=== PATIENT | female | born 2000 | race Caucasian/White ===

== ENCOUNTER 2021-07-21 17:15 | Inpatient (IN) | payer MEDICAID ==
[2021-07-21] MEDS ORDERED: HALOPERIDOL 5 MG TABLET PO PRN (23:15)
[2021-07-22] MEDS ORDERED: QUET25TA PO (00:03)
[2021-07-22] MEDS ORDERED: OLAN5TAB94 PO (00:03)
[2021-07-22] MEDS ORDERED: INFLUENZA VIRUS VACCINE QVS 2021-22 (6MO+)/PF 60 MCG/0.5 ML SYRINGE IM. ONE (01:00)
[2021-07-22 01:01] VITALS: BP 98/65
[2021-07-22 06:27] LABS: EOSINOPHILS % (AUTO) 1.3 % (1.0-6.0); HEMATOCRIT 38.6 % (36-46); HEMOGLOBIN 13.4 g/dL (12.0-16.0); LYMPHOCYTES # (AUTO) 2.4 K/uL (1.0-4.8); LYMPHOCYTES % (AUTO) 46.7 % (22.0-44.0); MEAN CORPUSCULAR HEMOGLOBIN 29.1 pg (26.0-34.0); MEAN CORPUSCULAR HGB CONC 34.6 G/dL (31.0-37.0); MEAN CORPUSCULAR VOLUME 84 fL (80-100); MONOCYTES # (AUTO) 0.4 K/uL (0.1-1.0); MONOCYTES % (AUTO) 7.9 % (2.0-9.0); NEUTROPHILS # (AUTO) 2.3 K/uL (1.8-7.7); NEUTROPHILS % (AUTO) 43.1 % (40.0-70.0); PLATELET COUNT (AUTO) 233 K/uL (150-450); RED CELL DISTRIBUTION WIDTH 14.1 % (11.5-14.5)
[2021-07-22 06:51] LABS: ALANINE AMINOTRANSFERASE 20 U/L (12-78); ALBUMIN 3.7 g/dL (3.4-5.0); ALKALINE PHOSPHATASE 76 U/L (46-116); ANION GAP 6 mmol/L (8-16); ASPARTATE AMINOTRANSFERASE 14 U/L (15-37); BILIRUBIN,TOTAL 0.5 mg/dL (0.1-1.0); CALCIUM, TOTAL 8.8 mg/dL (8.8-10.5); CARBON DIOXIDE 29 mmol/L (22-29); CHLORIDE 105 mmol/L (98-107); CHOL/HDL RATIO 2.3 (3.9-5.7); CHOLESTEROL 171 mg/dL (131-200); CREATININE 0.83 mg/dL (0.60-1.30); FREE T4 (FREE THYROXINE) 1.34 ng/dL (0.76-1.46); GLOMERULAR FILTR. RATE CALC > 60 mL/min (>60); GLUCOSE,RANDOM 91 mg/dL (70-110); HCG,QUANTITATIVE < 1 mIU/mL (0-6); HDL CHOLESTEROL 74 mg/dL (40-60); LDL CHOL (CALC.) 86 mg/dL (0-130); POTASSIUM 3.6 mmol/L (3.5-5.1); SODIUM SERUM 140 mmol/L (136-145); THYROID STIMULATING HORMONE 0.49 uIU/mL (0.36-3.74); TOTAL PROTEIN, SERUM 7.1 g/dL (6.4-8.2); TRIGLYCERIDES 54 mg/dL (15-150); UREA NITROGEN, BLOOD 11 mg/dL (7-18)
[2021-07-22 08:35] VITALS: BP 118/66
[2021-07-22] MEDS ORDERED: BENZOCAINE/MENTHOL LOZENGE PO PRN (08:45)
[2021-07-22] MEDS ORDERED: MAG HYDROX/AL HYDROX/SIMETH ES 30 ML SUSPENSION UDCUP PO PRN (08:45)
[2021-07-22] MEDS ORDERED: LOPERAMIDE HCL 2 MG CAPSULE PO PRN (08:45)
[2021-07-22] MEDS ORDERED: ALBUTEROL SULFATE HFA 90 MCG/PUFF 8 GM INHALER IH PRN (08:45)
[2021-07-22] MEDS ORDERED: CloNIDine HCL 0.1 MG TABLET PO PRN (08:45)
[2021-07-22] MEDS ORDERED: IBUPROFEN 600 MG TABLET PO PRN (08:45)
[2021-07-22] MEDS ORDERED: OMEPRAZOLE 20 MG CAPSULE PO PRN (08:45)
[2021-07-22] MEDS ORDERED: PETROLATUM,WHITE 28 GM JELLY TP PRN (08:45)
[2021-07-22] MEDS ORDERED: ONDANSETRON HCL 4 MG TABLET PO PRN (08:45)
[2021-07-22] MEDS ORDERED: DOCUSATE SODIUM 100 MG CAPSULE PO PRN (08:45)
[2021-07-22] MEDS ORDERED: ACETAMINOPHEN 325 MG TABLET PO PRN (08:45)
[2021-07-22] MEDS ORDERED: BACITRACIN 28 GM OINTMENT TP PRN (08:45)
[2021-07-22] MEDS ORDERED: MAGNESIUM HYDROXIDE SUSPENSION 30 ML UDCUP PO PRN (08:45)
[2021-07-22] MEDS: LORazepam 2 MG TABLET PO PRN ×2 (12:24→16:29)
[2021-07-22] MEDS: CITALOPRAM HYDROBROMIDE 20 MG TABLET PO SCH (12:24)
[2021-07-22 16:14] VITALS: BP 101/64
[2021-07-22] MEDS: RisperiDONE 1 MG TABLET PO SCH (16:29)
[2021-07-22] MEDS: ZOLPIDEM TARTRATE 10 MG TABLET PO PRN (20:22)
[2021-07-23 00:39] VITALS: BP 106/67
[2021-07-23] MEDS: RisperiDONE 1 MG TABLET PO SCH ×2 (08:31→16:14)
[2021-07-23] MEDS: CITALOPRAM HYDROBROMIDE 20 MG TABLET PO SCH (08:31)
[2021-07-23 08:54] VITALS: BP 110/68
[2021-07-23 16:10] VITALS: BP 105/61
[2021-07-23] MEDS: LORazepam 2 MG TABLET PO PRN (17:12)
[2021-07-23] MEDS: ZOLPIDEM TARTRATE 10 MG TABLET PO PRN (20:25)
[2021-07-24 02:18] VITALS: BP 128/70
[2021-07-24] MEDS: LORazepam 2 MG TABLET PO PRN ×2 (07:15→12:32)
[2021-07-24 08:17] VITALS: BP 112/69
[2021-07-24] MEDS: CITALOPRAM HYDROBROMIDE 20 MG TABLET PO SCH (08:44)
[2021-07-24] MEDS: RisperiDONE 2 MG TABLET PO SCH ×2 (08:44→16:22)
[2021-07-24 16:10] VITALS: BP 109/70
[2021-07-24] MEDS ORDERED: RISP2TAB45 PO (16:33)
[2021-07-24] MEDS ORDERED: CITA20TA17 PO (16:34)
== END 2021-07-24 20:00 | disposition home or self-care (01) | DRG 751 ==
LOC: B3A 23:55
PROVIDERS: ADMIT Psychiatry & Neurology Psychiatry; ATTEND Psychiatry & Neurology Psychiatry
DX: F29 Unspecified psychosis not due to a substance or known physiological condition (principal); R45.851 Suicidal ideations; F20.9 Schizophrenia, unspecified; G47.00 Insomnia, unspecified; K59.00 Constipation, unspecified; F19.10 Other psychoactive substance abuse, uncomplicated; F32.A Depression, unspecified; F41.9 Anxiety disorder, unspecified; Z28.21 Immunization not carried out because of patient refusal; Z72.0 Tobacco use
CPT/HCPCS: 80053; 80061; 84439; 84443; 84702; 85025; 87081